=== PATIENT | female | born 1950 ===

== ENCOUNTER 2021-04-05 05:47 | Observation (INO) ==
[2021-04-05] MEDS ORDERED: Lactated Ringers 1000 ml BAG 1,000 ML IV SCH (06:00)
[2021-04-05] MEDS ORDERED: Buffered Lidocaine 1% SYRIN 1 ml INTRADERM ONE (06:00)
[2021-04-05] MEDS ORDERED: Heparin 5000 UNITS/ML 1 mL VIAL ONE (06:13)
[2021-04-05] MEDS ORDERED: ceFAZolin 1 GM ADVAN 1 GM ADDV.VIAL IVPB ONE (06:13)
[2021-04-05] MEDS ORDERED: EPHEDrine (Pressors) 50 MG/ML VIAL ONE (06:45)
[2021-04-05] MEDS ORDERED: Lidocaine 2% PF 5 ML VIAL ONE (06:45)
[2021-04-05] MEDS ORDERED: Dexmedetomidine 200 mcg/2 ml 2 ml VIAL (200 mcg) ONE (06:45)
[2021-04-05] MEDS ORDERED: Propofol 10 MG/ML 20 ML BTL ONE (06:45)
[2021-04-05] MEDS ORDERED: fentaNYL 100 mcg/2 ml 50 MCG/ML VIAL ONE ×2 (06:45→08:06)
[2021-04-05] MEDS ORDERED: Rocuronium 50 mg VIAL 10 mg/ml 5 ml VIAL (50 mg) ONE ×2 (06:48→09:11)
[2021-04-05] MEDS ORDERED: Bupivacaine 0.5% SDV PF 30ML VIAL ONE (06:56)
[2021-04-05] MEDS ORDERED: Lidocaine 1% w EPI 1:200,000 SDV 30 ML VIAL ONE (06:56)
[2021-04-05] MEDS ORDERED: Succinylcholine 200 mg VIAL 20 mg/ml 10 ml VIAL (200 mg) ONE (06:58)
[2021-04-05] MEDS ORDERED: fentaNYL 250 mcg/5 ml 50 MCG/ML 5 ml VIAL (250 MCG) ONE (08:06)
[2021-04-05] MEDS ORDERED: Dexamethasone IV 4 MG/ML VIAL 1 ml VIAL ONE (08:17)
[2021-04-05] MEDS ORDERED: fentaNYL 100 mcg/2 ml 50 MCG/ML VIAL IV PRN (10:27)
[2021-04-05] MEDS ORDERED: Ondansetron 4 mg VIAL 2 MG/ML 2 ml VIAL IV PRN ×2 (10:27→11:09)
[2021-04-05] MEDS ORDERED: Naloxone 0.4 mg VIAL 0.4 mg/ml 1 ml VIAL IV PRN (10:27)
[2021-04-05] MEDS ORDERED: HYDROmorphone 1 MG/1 ML SYRINGE IV SLOW PU PRN (11:24)
[2021-04-05] MEDS ORDERED: HYDROmorphone 0.5 MG/0.5 ML SYRINGE IV SLOW PU PRN (11:24)
[2021-04-05] MEDS ORDERED: Polyethyl Glycol/Propylene Gly OPHTH.SOLN BOTH EYES PRN (11:27)
[2021-04-05] MEDS ORDERED: Fluticasone NASAL SPRAY 50MCG 16 gm SPRAY BTL BOTH NARES PRN (11:27)
[2021-04-05] MEDS ORDERED: Ondansetron 4 mg VIAL 2 MG/ML 2 ml VIAL ONE (11:31)
[2021-04-05] MEDS ORDERED: Metoclopramide 5 MG/ML VIAL (10 mg) IV PRN (11:56)
[2021-04-05] MEDS ORDERED: Metoclopramide 5 MG/ML VIAL (10 mg) ONE (12:06)
[2021-04-05] MEDS: Acetaminophen IV 1 GM/100ML 100 ML IV SCH ×2 (15:02→22:32)
[2021-04-05] MEDS: Lactated Ringers 1000 ml BAG 1,000 ML IV SCH (15:03)
[2021-04-05] MEDS: Heparin 5000 UNITS/ML 1 mL VIAL SUBCUT SCH ×2 (15:03→22:31)
[2021-04-05] MEDS: Famotidine IV 10 MG/ML 2 ml VIAL (20 mg) IV SLOW PU SCH (21:23)
[2021-04-06] MEDS: Lactated Ringers 1000 ml BAG 1,000 ML IV SCH (02:01)
[2021-04-06] MEDS: Heparin 5000 UNITS/ML 1 mL VIAL SUBCUT SCH ×2 (06:35→14:17)
[2021-04-06] MEDS: Acetaminophen IV 1 GM/100ML 100 ML IV SCH ×2 (06:37→14:17)
[2021-04-06 07:11] LABS: ABS Lymphocytes 1.1 10^3/ul (1.0-4.8); ABS Monocytes 0.4 10^3/ul (0-0.8); ABS Neutrophils 4.2 10^3/ul (1.5-7.7); Eosinophil % 0.7 %; Hematocrit 35 % (35-47); Hemoglobin 11.7 g/dL (12.0-16.0); Lymphocyte % 19.4 %; Mean Corpuscular HGB Conc 33 g/dL (31-36); Mean Corpuscular Hemoglobin 30 pg (27-31); Mean Corpuscular Volume 89 fL (80-97); Mean Platelet Volume 7.5 fL (7.4-10.4); Platelet Count 197 10^3/uL (150-450); Red Blood Count 3.96 10^6 /uL (3.70-4.87); Red Cell Distribution Width 15 % (10-15); White Blood Count 5.8 10^3/uL (3.5-10.8)
[2021-04-06] MEDS: Famotidine IV 10 MG/ML 2 ml VIAL (20 mg) IV SLOW PU SCH (09:49)
[2021-04-06 16:00] VITALS: BP 92/58
[2021-04-08] MEDS ORDERED: Scopolamine PATCH Remove NOTE PATCH OFF ONE (11:30)
== END 2021-04-06 16:45 | disposition home or self-care (01) ==
LOC: EDSEX → OR 05:47 → SSU 05:47 → EDSEX 07:30 → MERGE 07:30
PROVIDERS: ADMIT Surgery; ATTEND Surgery